=== PATIENT | female | born 1985 | race Hispanic/Latino ===

== ENCOUNTER → 2023-12-01 | Outpatient (CLI) | payer OTHER | END | disposition home or self-care (01) | LOC: RAH 11:13 | PROVIDERS: ATTEND Obstetrics & Gynecology | DX: N63.21 Unspecified lump in the left breast, upper outer quadrant (principal); R92.343 Mammographic extreme density, bilateral breasts; N63.22 Unspecified lump in the left breast, upper inner quadrant | CPT/HCPCS: 76641; 77066 ==